=== PATIENT | male | born 1975 | race Caucasian/White ===

== ENCOUNTER 2017-12-04 19:29 | Emergency (ER) | payer OTHER, SELFPAY ==
[2017-12-04 19:32] VITALS: BP 157/95; PULSE 74; RESP 20; TEMP 36.1; O2SAT 98
[2017-12-04 20:50] LABS: ALT 29 U/L (12-78); AST 16 U/L (15-37); Albumin 4.2 g/dL (3.4-5.0); Alkaline Phosphatase 124 U/L (46-116); Anion Gap 10.9 mmol/L (3-11); BUN 15 mg/dL (7-18); Bilirubin, Total 0.6 mg/dL (0.2-1.0); CO2 27.1 mmol/L (21.0-32.0); CREATININE 1.48 mg/dL (0.70-1.30); Calcium 8.4 mg/dL (8.5-10.1); Chloride 103 mmol/L (98-107); Estimated GFR 52.38 (mL/min/1.73m2); Glucose 114 mg/dL (70-100); Potassium 3.7 mmol/L (3.5-5.1); Sodium 141 mmol/L (136-145); Total Protein 8.2 g/dL (6.4-8.2)
[2017-12-04 21:11] LABS: INR 1.1 (1.0-3.5); Prothrombin Time 10.7 sec (9.3-10.8)
[2017-12-04 21:14] LABS: HCT 45.6 % (40.0-50.0); HGB 14.8 g/dL (13.5-17.5); Mean Corp. HGB Concentration 32.5 g/dL (32.0-36.0); Mean Corpuscular Volume 80.1 fL (80-95); Platelet Count 201 x1000/uL (130-400); RBC 5.69 m/cumm (4.50-6.00); RBC Distribution Width 14.1 % (11.8-14.1); White Blood Cell Count 10.67 k/cumm (4.4-10.8)
[2017-12-04 22:12] LABS: Bilirubin Negative (Negative); Blood Moderate (Negative); Clarity Clear; Glucose Negative (Negative); Ketones 15 mg/dL (Negative); Leukocyte Esterase Negative (Negative); Nitrite Negative (Negative); Specific Gravity >= 1.030 (1.005-1.025); Urobilinogen 0.2 EU/dL (Up TO 0.2); pH 5.5 (5-8)
[2017-12-04 22:38] LABS: Bacteria Negative HPF (Negative); C & S Indicated? No; Casts Negative LPF (Negative); Crystals Many Amorphous HPF (Negative); Epithelial Cells Negative HPF (Negative); Mucus Moderate (Negative); Other Cells Negative (Negative)
--- NOTE | 2017-12-04 23:12 | W.ED.GENAD ---
Discharge Plan Disposition Patient Disposition: HOME Condition: Improving Discharge Details Chief Complaint: GI Bleed Clinical Impression: Nephrolithiasis, Hydronephrosis Primary Care Provider: [facility],[place] ED Provider: Jocy Hill Home Meds and New Rx's Prescriptions: New oxycodone 5 mg tablet 5 mg PO Q6H PRN (Reason: pain) Qty: 10 RF: 0 No Action tamsulosin [Flomax] 0.4 mg capsule 0.8 mg PO DAILY Qty: 60 RF: 1 Discharge Instructions Instructions: Kidney Stones (ED) Additional Instructions: Drink plenty of fluids. Take the Zofran as needed and directed for nausea and vomiting and the oxycodone as needed and directed for pain. Take the Flomax as directed to help with passing the stone. You should receive a call from the emergency department or urology tomorrow morning regarding plans for follow-up with urology. Referrals: Jonny Rahman MD [ [facility] STAFF PHYSICIAN] - ([phone]) Discharge Data Discharge Date/Time-TO BE ENTERED AT DEPARTURE: 12/05/17 00:45 Discharge Physician: Jocy Hill Medical Decision Making [facility] Narrative Medical decision making narrative: 42yo M with a history of kidney stones who presents to the ED with a complaint of bilateral lower abdominal pain since 11 AM. Patient states the pain does not feel similar to his kidney stones but he was concerned it was due to this. Patient states he began to drink water and then vomited twice which mainly consist of water with streaks of blood. Patient states his abdomen feels more pressure and distended. Patient states he has also had small bowel movements over the last few days which is unusual for him. Patient states he feels like his symptoms may be due to gas or kidney stone. He does also admit to urinary urgency but denies hematuria, dysuria, penile discharge, sexual or lesions. Vitals note a blood pressure 157/95, normal heart rate, respiratory rate, temperature and oxygen saturation. Patient is pacing around the room and holding his abdomen. His abdomen is mildly distended but nontender. He has no CVA tenderness. Normal exam. Patient had labs drawn on arrival which noted a white blood cell count of 10, creatinine 1.48, lipase 104, AST 16, ALT 29. Discussed with patient the possible differential diagnosis of his symptoms and that as he has bilateral lower abdominal pain, that would make kidney stone less likely. However with his urinary urgency and history of kidney stones, we can proceed with CT. Also discussed the possibility of another possible acute abdominal cause such as an obstruction. Patient is declining a CT at this time. He was also offered an abdominal x-ray but declines. Patient is agreeable to a urinalysis. He is declining pain medication. Patient states he would like to mainly go home to take mag citrate for what he thinks is constipation. 2310 --urinalysis notes blood with 3-5 WBCs but no other evidence of infection. Patient still complaining of lower abdominal pain. I again recommended CT and he is now agreeable. We will also give a dose of Toradol, Zofran and bolus IV fluid. Patient states he mainly wants to determine if he has constipation versus a kidney stone. 0010 --patient feels much better after Toradol and states his pain is near resolved. ED review of CT notes two kidney stones on right with hydro. Will wait for formal CT report. 0015 --CT notes to right ureteral stones, 6 mm in the proximal ureter, and 5 mm in the distal ureter with severe hydronephrosis. Discussed with patient that stones under 5 mm more likely to pass, but he may also pass a 6 mm stone as well. I discussed that I can call [facility] urology for further recommendations now or discuss with Dr. Rahman after 6 AM when he is available and patient would rather go home and have a call placed to Dr. Rahman in the morning. Pt appears much more comfortable and nontoxic. 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 He was instructed to return immediately with any concerns. Patient given dose of Flomax here and 2 doses of Zofran for home. We will also sent home with prescription for Flomax and oxycodone. We will have care management/press secretary call Dr. Rahman after 6 AM tomorrow morning to review the CT and call patient with plans for follow-up whether patient needs a stent placement or stone can pass on its own. Lab Data Lab Results 12/04/17 12/04/17 12/04/17 Range/Units 19:44 19:44 19:44 WBC 10.67 (4.4-10.8) k/cumm RBC 5.69 (4.50-6.00) m/cumm Hgb 14.8 (13.5-17.5) g/dL Hct 45.6 (40.0-50.0) % MCV 80.1 (80-95) fL MCH 26.0 L (27.0-33.0) pg MCHC 32.5 (32.0-36.0) g/dL RDW 14.1 (11.8-14.1) % Plt Count 201 (130-400) x1000/uL MPV 12.0 H (8.0-11.0) fL PT 10.7 (9.3-10.8) sec INR 1.1 (1.0-3.5) Sodium 141 (136-145) mmol/L Potassium 3.7 (3.5-5.1) mmol/L Chloride 103 (98-107) mmol/L Carbon Dioxide 27.1 (21.0-32.0) mmol/L Anion Gap 10.9 (3-11) mmol/L BUN 15 (7-18) mg/dL Creatinine 1.48 H (0.70-1.30) mg/dL Estimated GFR/1.73 m2 52.38 (mL/min/1.73m2) Glucose 114 H (70-100) mg/dL Calcium 8.4 L (8.5-10.1) mg/dL Total Bilirubin 0.6 (0.2-1.0) mg/dL AST 16 (15-37) U/L ALT 29 (12-78) U/L Alkaline Phosphatase 124 H (46-116) U/L Total Protein 8.2 (6.4-8.2) g/dL Albumin 4.2 (3.4-5.0) g/dL Urine Color (Yellow) Urine Clarity Urine pH (5-8) Ur Specific Frederica (1.005-1.025) Urine Protein (Negative) mg/dL Urine Ketones (Negative) mg/dL Urine Blood (Negative) Urine Nitrite (Negative) Urine Bilirubin (Negative) Urine Urobilinogen (Up TO 0.2) EU/dL Ur Leukocyte Esterase (Negative) Urine RBC (0-2) Urine WBC (0-5) HPF Ur Epithelial Cells (Negative) HPF Urine Crystals (Negative) HPF Urine Bacteria (Negative) HPF Urine Casts (Negative) LPF Urine Mucus (Negative) Urine Other (Negative) Ur Culture Indicated? Urine Glucose (Negative) mg/dL Patient ABO/Rh Antibody Screen 12/04/17 12/04/17 Range/Units 19:44 21:58 WBC (4.4-10.8) k/cumm RBC (4.50-6.00) m/cumm Hgb (13.5-17.5) g/dL Hct (40.0-50.0) % MCV (80-95) fL MCH (27.0-33.0) pg MCHC (32.0-36.0) g/dL RDW (11.8-14.1) % Plt Count (130-400) x1000/uL MPV (8.0-11.0) fL PT (9.3-10.8) sec INR (1.0-3.5) Sodium (136-145) mmol/L Potassium (3.5-5.1) mmol/L Chloride (98-107) mmol/L Carbon Dioxide (21.0-32.0) mmol/L Anion Gap (3-11) mmol/L BUN (7-18) mg/dL Creatinine (0.70-1.30) mg/dL Estimated GFR/1.73 m2 (mL/min/1.73m2) Glucose (70-100) mg/dL Calcium (8.5-10.1) mg/dL Total Bilirubin (0.2-1.0) mg/dL AST (15-37) U/L ALT (12-78) U/L Alkaline Phosphatase (46-116) U/L Total Protein (6.4-8.2) g/dL Albumin (3.4-5.0) g/dL Urine Color Yellow (Yellow) Urine Clarity Clear Urine pH 5.5 (5-8) Ur Specific Frederica >= 1.030 H (1.005-1.025) Urine Protein 30 H (Negative) mg/dL Urine Ketones 15 H (Negative) mg/dL Urine Blood Moderate H (Negative) Urine Nitrite Negative (Negative) Urine Bilirubin Negative (Negative) Urine Urobilinogen 0.2 (Up TO 0.2) EU/dL Ur Leukocyte Esterase Negative (Negative) Urine RBC 5-10 H (0-2) Urine WBC 3-5 (0-5) HPF Ur Epithelial Cells Negative (Negative) HPF Urine Crystals Many amorphous (Negative) HPF Urine Bacteria Negative (Negative) HPF Urine Casts Negative (Negative) LPF Urine Mucus Moderate (Negative) Urine Other Negative (Negative) Ur Culture Indicated? No Urine Glucose Negative (Negative) mg/dL Patient ABO/Rh B Positive Antibody Screen Negative HPI - General Adult General Mode of arrival: ambulatory. Date/Time Provider Initiated Documentation: 12/04/17 20:17. Limitations to Documentation: no limitations. Information obtained by: patient. HPI Narrative: Pt is a 42 yo M w/ a h/p kidney stones who presents to the ED w/ a c/o b/l lower abdominal pressure since 11am this morning. States his abdomen feels bloated and I think I'm constipated. Has had small hard BM's today but denies rectal bleeding. States the abdominal pain does not feel c/w his previous kidney stone but he thought maybe it could be so he began drinking lots of water and then vomited twice which was blood tinged. Last kidney stone 4 months ago. Also admits to urinary urgency but denies dysuria, hematuria, penile discharge, lesions or known exposure to STDs. Denies recent sexual intercourse. He has not taken any medicine for pain. Admits to sweating today but denies known fever. 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 Related Data Previous Rx's Medication Instructions Recorded oxycodone 5 mg PO Q6H PRN #10 tab 12/05/17 tamsulosin 0.4 mg capsule 0.8 mg PO DAILY #60 cap 12/05/17 Allergies Allergy/AdvReac Type Severity Reaction Status Date / Time No Known Allergies Allergy Unverified 12/04/17 19:34 General Stated Complaint: GI Bleed DIANNE: 2 Review of Systems Review of Systems All systems reviewed & are unremarkable except as noted in HPI and below Constitutional Denies chills, Denies fatigue, Denies fever(s), Denies weakness and Denies weight loss Eyes Patient Reports system reviewed and no additional complaints, except as docu and Denies blurry vision ENT Denies vertigo, Denies dizziness, Denies otalgia, Denies nasal congestion, Denies sore throat and Denies throat swelling Cardiovascular Denies chest pain, Denies syncope, Denies rapid heart rate and Denies dyspnea Respiratory Denies dyspnea Gastrointestinal Reports abdominal pain, Denies diarrhea and Reports vomiting Genitourinary Denies hematuria, Denies genital lesions, Denies dysuria, Denies flank pain, Denies testicular mass, Denies testicular pain, Denies urinary frequency and Reports urinary urgency Musculoskeletal Denies back pain and Denies joint swelling Integumentary/Breasts Denies lesions and Denies rash Neurologic Denies behavioral changes, Denies confusion, Denies vertigo, Denies dizziness, Denies syncope and Denies weakness Psychiatric Denies behavioral changes, Denies confusion and Denies depression Endocrine Denies fatigue Hematologic/Lymphatic Denies easy bruising and Denies lymphadenopathy Allergic/Immunologic Denies throat swelling PFSH Social History Smoking/Tobacco Use Status: Never Exam Const General: cooperative, uncomfortable, in distress (moderate - pacing around room holding onto lower abdomen) and other (pale and mildly sweaty) Orientation: alert and awake HENMT Head: normal to inspection Ears: hearing grossly normal bilaterally and external ears normal General nose exam: external nose normal Face and sinus: normal facial exam Mouth: oral mucosae normal Eyes General: appearance normal, both eyes and all related structures Eyelids: eyelids normal EOM: EOM intact bilaterally Neck Neck: normal visual inspection Chest Chest: normal inspection of the chest Resp Effort & Inspection: normal respiratory effort and able to speak in complete sentences Auscultation: clear to auscultation bilaterally Cardio Rate: regular rate Rhythm: regular rhythm GI Inspection: normal to inspection Palpation: soft, not firm, no guarding, no hepatosplenomegaly, no masses and tender (very minimal across lower abdomen) Auscultation: normal bowel sounds Male General Exam: Yes normal external exam Penis: normal penis Scrotum: scrotum normal Testes: normal Back/Spine/Pelvis Back: no CVA tenderness Skin General skin exam: no rashes or lesions noted Neuro General: alert, awake, moves all extremities and no focal motor deficits Cognition: normal cognition Speech: speech normal Gait: normal gait Motor: muscle tone normal throughout and strength 5/5 throughout Sensory Exam: no sensory deficits noted Extrem General: normal to inspection, full ROM, normal capillary refill and no edema Psych Appearance: grossly normal Mental Status: mental status grossly normal Speech and Movement: speech and movement normal Affect: normal affect Thought Process: normal Course Vital Signs Temperature 97.0 F L 12/04/17 19:32 Pulse 74 12/04/17 19:32 Respiratory Rate 20 12/04/17 19:32 Blood Pressure 157/95 H 12/04/17 19:32 Pulse Oximetry 98 12/04/17 19:32 Temperature 97.0 F L 12/04/17 19:32 Pulse 74 12/04/17 19:32 Respiratory Rate 20 12/04/17 19:32 Blood Pressure 157/95 H 12/04/17 19:32 Pulse Oximetry 98 12/04/17 19:32 Lab/Test Results Lab/Test Results: Laboratory Tests 12/04/17 12/04/17 12/04/17 19:44 19:44 19:44 WBC 10.67 RBC 5.69 Hgb 14.8 Hct 45.6 MCV 80.1 MCH 26.0 L MCHC 32.5 RDW 14.1 Plt Count 201 MPV 12.0 H PT 10.7 INR 1.1 Sodium 141 Potassium 3.7 Chloride 103 Carbon Dioxide 27.1 Anion Gap 10.9 BUN 15 Creatinine 1.48 H Estimated GFR/1.73 m2 52.38 Glucose 114 H Calcium 8.4 L Total Bilirubin 0.6 AST 16 ALT 29 Alkaline Phosphatase 124 H Total Protein 8.2 Albumin 4.2 Urine Color Urine Clarity Urine pH Ur Specific Frederica Urine Protein Urine Ketones Urine Blood Urine Nitrite Urine Bilirubin Urine Urobilinogen Ur Leukocyte Esterase Urine RBC Urine WBC Ur Epithelial Cells Urine Crystals Urine Bacteria Urine Casts Urine Mucus Urine Other Ur Culture Indicated? Urine Glucose Patient ABO/Rh Antibody Screen 12/04/17 12/04/17 19:44 21:58 WBC RBC Hgb Hct MCV MCH MCHC RDW Plt Count MPV PT INR Sodium Potassium Chloride Carbon Dioxide Anion Gap BUN Creatinine Estimated GFR/1.73 m2 Glucose Calcium Total Bilirubin AST ALT Alkaline Phosphatase Total Protein Albumin Urine Color Yellow Urine Clarity Clear Urine pH 5.5 Ur Specific Frederica >= 1.030 H Urine Protein 30 H Urine Ketones 15 H Urine Blood Moderate H Urine Nitrite Negative Urine Bilirubin Negative Urine Urobilinogen 0.2 Ur Leukocyte Esterase Negative Urine RBC 5-10 H Urine WBC 3-5 Ur Epithelial Cells Negative Urine Crystals Many amorphous Urine Bacteria Negative Urine Casts Negative Urine Mucus Moderate Urine Other Negative Ur Culture Indicated? No Urine Glucose Negative Patient ABO/Rh B Positive Antibody Screen Negative
[2017-12-04] MEDS: Normal Saline 1,000 ML 1000 ML IV (23:21)
[2017-12-04] MEDS: Ketorolac 30 MG/ML VIAL IVP (23:21)
[2017-12-04] MEDS: Ondansetron 4 MG/2 ML VIAL IVP (23:22)
[2017-12-04 23:33] LABS: Lipase 104 U/L (73-393)
--- NOTE | 2017-12-04 23:45 | DI.CT_ITS ---
SYMPTOM/DIAGNOSIS: HEMATURIA, ABD PAIN, ? STONE RENAL COLIC CT: The lung bases are unremarkable. The liver and gallbladder are unremarkable. There are no stones or ductal dilatation. The pancreas, spleen and adrenals are unremarkable. Moderately severe right hydronephrosis is demonstrated secondary to a 6 mm. stone projected over the proximal right ureter and there is a 5 mm. stone in the distal right ureter. The stomach and bowel are unremarkable. There is nothing to suggest an acute appendix. The bladder is unremarkable. The reproductive organs as visualized are intact. There is no evidence of free air or free fluid in the intraperitoneal space. No acute bony abnormality is seen. The soft tissues are intact. There is no aortic aneurysm. There is no lymphadenopathy. SUMMARY: Moderately severe right hydronephrosis secondary to a 6 mm. calculus in the proximal right ureter and a 5 mm. distal right ureteral calculus.
--- NOTE | 2017-12-05 00:19 | DI.VRAD_ITS ---
EXAM: CT Abdomen and Pelvis Without Intravenous Contrast CLINICAL HISTORY: 42 years old, male; Pain; Abdominal pain; Localized; Other: Mid abdominal pain both sides; Patient HX: HX of renal stones, vomiting and abdominal pain across mid abdomen TECHNIQUE: Axial computed tomography images of the abdomen and pelvis without intravenous contrast. All CT scans at this facility use at least one of these dose optimization techniques: automated exposure control; mA and/or kV adjustment per patient size (includes targeted exams where dose is matched to clinical indication); or iterative reconstruction. Coronal and sagittal reformatted images were created and reviewed. COMPARISON: No relevant prior studies available. FINDINGS: Lung bases: Unremarkable. No mass. No consolidation. ABDOMEN: Liver: Unremarkable. Gallbladder and bile ducts: Unremarkable. No calcified stones. No ductal dilation. Pancreas: Unremarkable. No ductal dilation. Spleen: Unremarkable. No splenomegaly. Adrenals: Unremarkable. No mass. Kidneys and ureters: 6 mm stone proximal right ureter. 5 mm stone distal right ureter. Moderate to severe right-sided hydronephrosis. Stomach and bowel: Unremarkable. No obstruction. No mucosal thickening. PELVIS: Appendix: No findings to suggest acute appendicitis. Bladder: Unremarkable. No stones. Reproductive: Unremarkable as visualized. ABDOMEN and PELVIS: Intraperitoneal space: Unremarkable. No free air. No significant fluid collection. Bones/joints: No acute fracture. No dislocation. Soft tissues: Unremarkable. Vasculature: Unremarkable. No abdominal aortic aneurysm. Lymph nodes: Unremarkable. No enlarged lymph nodes. IMPRESSION: Right ureteral stones results in moderate to severe hydronephrosis. 6 mm stone in the proximal ureter and a 5 mm stone in the distal ureter. Dictated and Authenticated by: Bertram Marks MD. Ordering:SABINO SPENCER MD
[2017-12-05] MEDS: Ondansetron O.D.T. 4 MG TABEF PO (00:38)
[2017-12-05] MEDS: oxyCODONE 5 MG TAB PO (00:39)
[2017-12-05] MEDS: Tamsulosin 0.4 MG CAPCR PO (00:39)
--- NOTE | 2017-12-05 10:06 | PDOC.ERCMPRO ---
Care Management Progress Note 12/05/17-Pt seen on 12/04/[address] for [address] stones [address] Azra Hill. Referral f/u request sent to Urology.
== END 2017-12-05 00:45 | disposition home or self-care (01) ==
LOC: ER 12-05 00:52
PROVIDERS: Emergency Provider Physician Assistant
DX: N13.2 Hydronephrosis with renal and ureteral calculous obstruction (principal); Z87.442 Personal history of urinary calculi
CPT/HCPCS: 36415; 80053; 83690; 85027; 86850; 86900; 86901; 96361; 96374; 96375; 99284; 74176; 81003; 81015; 85610; 99285; J1885; J2405

== ENCOUNTER 2018-01-15 01:06 | Outpatient (CLI) | payer OTHER, SELFPAY ==
--- NOTE | 2018-01-15 09:33 | DI.US_ITS ---
SYMPTOM/DIAGNOSIS: ? HYDRONEPHROSIS, RT URETERAL STONE, N20.1 RENAL ULTRASOUND: Routine examination. Comparison is made with 12/04/17. The right kidney measures 14.3 cm. long. There is moderate dilatation of the right renal collecting system and proximal right ureter. No solid renal mass or calculus is seen in the right kidney. There is normal blood flow to the right kidney. The left kidney measures 13.8 cm. long. No renal mass, calculus or obstruction is identified. There is normal blood flow to the left kidney. The prevoid urinary bladder volume is 260 cc's. The bladder wall appears smooth. No intraluminal masses are present. Both ureteral jets were seen. Postvoid urinary bladder volume is 50 cc's. Prostatic volume is 19 cc's. IMPRESSION: Persistent moderate hydronephrosis of the right kidney.
== END 2018-01-15 01:26 ==
PROVIDERS: Visit Provider Urology
DX: N20.0 Calculus of kidney (principal); N13.30 Unspecified hydronephrosis
CPT/HCPCS: 76770